=== PATIENT | male | born 1990 | race Caucasian/White ===

== ENCOUNTER 2017-10-20 12:06 | Day surgery (SDC) | payer MEDICAID ==
[~2017-10-20] VITALS: Ht 177.8 cm; Wt 104.5 kg
[~2017-10-20 12:06] MED LIST: PROPOFOL 1% 20 ML VIAL IVP ONE; SODIUM CHLORIDE 0.9% 1,000 ML IV ONE
== END 2017-10-20 15:20 | disposition home or self-care (01) ==
LOC: SURGERY 12:06 → EDSEX 14:00 → SURGERY 15:20
PROVIDERS: ATTEND Internal Medicine Gastroenterology
DX: K29.50 Unspecified chronic gastritis without bleeding (principal); E66.9 Obesity, unspecified; Z68.33 Body mass index [BMI] 33.0-33.9, adult; Z80.1 Family history of malignant neoplasm of trachea, bronchus and lung; Z80.42 Family history of malignant neoplasm of prostate; Z72.89 Other problems related to lifestyle; Z98.890 Other specified postprocedural states; Z79.899 Other long term (current) drug therapy
CPT/HCPCS: 43239; 88305; 88312; C1769; J2704; J7030